=== PATIENT | female | born 1970 | race Caucasian/White ===

== ENCOUNTER 2023-05-21 09:46 | Outpatient (OUT) | payer OTHER, SELFPAY ==
--- NOTE | 2023-05-21 10:37 | CA_ITS ---
Patient Name: GABRIELLE RIVERA MR#: [id number] : 1970 Exam Date: 05/21/2023 Ordering Doctor: DR ZAINAB HUMMEL ECHOCARDIOGRAM REPORT PROCEDURE: CA ECHO DOPPLER COMPLETE INDICATIONS: Aortic valve stenosis, h/o Ross procedure, hypertension, diabetes, sarcoidosis COMPARISON: None. DESCRIPTION: COMPLETE ECHOCARDIOGRAM Real-time transthoracic echocardiography with 2D, M-mode, spectral and color flow Doppler performed. QUALITY: Technical quality was good. 49 , 180#, BSA 1.54 m2 LEFT VENTRICLE: Normal chamber size. Normal left ventricular wall thickness. LV EF: Global left ventricular systolic function is difficult to assess but appears preserved; visually estimated ejection fraction is 55 to 60%. Cannot assess regional wall motion abnormalities. Consider contrast study for better delineation of endocardial borders. DIASTOLIC: Normal diastolic function. ATRIAL SEPTUM: Inadequately seen. LEFT ATRIUM: Normal chamber size. RIGHT ATRIUM: Normal chamber size. RIGHT VENTRICLE: Normal chamber size. Normal right ventricular systolic function. TRICUSPID VALVE: Normal mobility and thickness. No stenosis with trivial regurgitation. No evidence of pulmonary hypertension. RVSP 23 mmHg MITRAL VALVE: Normal mobility and thickness. No evidence of mitral valve stenosis. There is no mitral annular calcification. No mitral regurgitation. AORTIC VALVE: Bio-Prosthetic valve appears well seated in the aortic position with normal Doppler flow. Normal leaflet mobility. Trivial aortic regurgitation. AORTIC ROOT: Normal diameter and appearance. PULMONIC VALVE: Bio-Prosthetic valve appears well seated in the pulmonic position. Mildly elevated peak velocity. Mild regurgitation. PERICARDIUM: No evidence of pericardial effusion. IVC: Not well visualized. CONCLUSION: 1. Global left ventricular systolic function is difficult to assess but appears preserved; visually estimated ejection fraction is 55 to 60% 2. The right ventricle is normal in size and systolic function 3. Normal diastolic function 4. Normal right ventricular systolic pressure; RVSP 23 mmHg 5. A bioprosthetic aortic valve is seen with normal Doppler flow 6. A bioprosthetic pulmonic valve is seen with mildly elevated peak velocities; mild pulmonic regurgitation Adult Echocardiography Procedure Report Left Ventricle LVEDD (3.7 - 5.6 cm): 4.52 cm LVESD (2.2 - 4.0 cm): 2.74 cm LVIVS thickness (0.6 - 1.2 cm): 0.91 cm LVPW thickness (0.5 - 1.0 cm): 0.92 cm E - e': 5.63 LVOT Max Gradient: 2.87 mm[Hg] LVOT Area (cm2): 0.85 m/s Peak Velocity (LVOT): 0.85 m/s Mean Velocity (LVOT): 0.60 m/s LVOT Diameter 1.96 cm Left Atrium LA Volume Index (2D A2C): 26.89 ml/m2 Left Atrium Systolic Dimension: 3.92 cm Mitral Valve MV E to A Ratio: 1.22 Mitral Valve A-Wave Peak Velocity: 0.71 m/s Mitral Valve E-Wave Peak Velocity: 0.87 m/s Right Ventricle Aorta AO Root Diam: 3.04 cm Ascending Ao Diam: 1.87 cm Aortic Valve AoV Area (Peak Armando): 2.65 cm2, 2.65 cm2 AoV Area (VTI): 3.01 cm2, 3.01 cm2 Peak Velocity(Antegrade Flow): 0.96 m/s Peak Gradient(Antegrade Flow): 3.68 mm[Hg] Mean Velocity(Antegrade Flow): 0.65 m/s Mean Gradient(Antegrade Flow): 1.95 mm[Hg] Velocity Time Integral: 18.32 cm Tricuspid Valve Peak Velocity (Regurgitant Flow): 2.26 m/s Pulmonic Valve Mean Gradient: 7.86 mm[Hg], 9.88 mm[Hg] Mean Velocity: 1.29 m/s, 1.47 m/s Peak Gradient: 13.99 mm[Hg], 18.15 mm[Hg] Right Atrium Right Atrium Systolic Pressure: 32.79 ml, 32.79 ml Dictated by: Shea Yeboah M.D. on 05/21/2023 at 16:02 Approved by: Shea Yeboah M.D. on 05/21/2023 at 16:08
== END 2023-05-21 09:47 | disposition home or self-care (01) ==
LOC: CARD 09:46
PROVIDERS: PCP Family Medicine; Visit Provider Family Medicine
DX: I35.0 Nonrheumatic aortic (valve) stenosis (principal)
CPT/HCPCS: 93306